=== PATIENT | female | born 1955 | race Two or more races ===

== ENCOUNTER 2022-01-11 09:51 | Emergency (ER) | payer MEDICARE, OTHER ==
[~2022-01-11] VITALS: Ht 162.6 cm; Wt 87.5 kg
[2022-01-11] MEDS ORDERED: MORPHINE SULFATE INJ 2 MG/ML DISP.SYRIN IM ONE (10:00)
[2022-01-11] MEDS ORDERED: MORPHINE SULFATE INJ 4 MG/ML DISP.SYRIN ONE (10:07)
--- NOTE | 2022-01-11 10:18 | NUR ---
STRATEGIC PLANNING DIRECTOR AT BEDSIDE FOR XRAY
--- NOTE | 2022-01-11 10:54 | NUR ---
DR NIEVES AT BEDSIDE TALKING TO THE PATIENT AND
[2022-01-11] MEDS ORDERED: HYDR-3980 PO ×2 (11:32→11:34)
--- NOTE | 2022-01-11 11:52 | NUR ---
IV removed. Catheter intact and site benign. Pressure and 4x4 applied to site. No bleeding noted.Patient discharged to home in stable condition. Written and verbal after care instructions given. Patient verbalizes understanding of instruction. The patient is picked up by her son.
--- NOTE | 2022-01-11 12:02 | NUR ---
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
[2022-01-11 12:09] VITALS: BP 130/75
== END 2022-01-11 12:02 | disposition home or self-care (01) ==
LOC: ER 09:58
DX: S42.291A Other displaced fracture of upper end of right humerus, initial encounter for closed fracture (principal); E78.00 Pure hypercholesterolemia, unspecified; E07.9 Disorder of thyroid, unspecified; W01.0XXA Fall on same level from slipping, tripping and stumbling without subsequent striking against object, initial encounter; Y93.89 Activity, other specified; Y92.89 Other specified places as the place of occurrence of the external cause; Y99.8 Other external cause status
CPT/HCPCS: 99284; 96372; 73060; 73030; J2270; J7030